=== PATIENT | female | born 1955 | race Caucasian/White ===

== ENCOUNTER 2018-04-29 13:41 | Emergency (ER) | payer OTHER ==
[~2018-04-29] VITALS: Ht 160 cm; Wt 63.3 kg
[2018-04-29] MEDS ORDERED: KEFLEX500 MG PO (16:04)
[2018-04-29] MEDS ORDERED: NORCO 5/3251 TABLET PO (16:04)
[2018-04-29 16:52] VITALS: BP 138/84
== END 2018-04-29 16:53 | disposition home or self-care (01) ==
LOC: EME 13:41
DX: S61.012A Laceration without foreign body of left thumb without damage to nail, initial encounter (principal); W45.8XXA Other foreign body or object entering through skin, initial encounter; Z23 Encounter for immunization; Z88.5 Allergy status to narcotic agent
CPT/HCPCS: S0020

== ENCOUNTER 2018-05-08 11:03 | Emergency (ER) | payer OTHER ==
[~2018-05-08] VITALS: Ht 160 cm; Wt 61.0 kg
[~2018-05-08 11:03] MED LIST: KEFLEX500 MG PO; NORCO 5/3251 TABLET PO
[2018-05-08] MEDS ORDERED: ROXICODONE5 MG PO (12:44)
[2018-05-08 13:27] VITALS: BP 144/77
== END 2018-05-08 13:30 | disposition home or self-care (01) ==
LOC: EME 11:03
DX: S42.301A Unspecified fracture of shaft of humerus, right arm, initial encounter for closed fracture (principal); X50.9XXA Other and unspecified overexertion or strenuous movements or postures, initial encounter; Y93.89 Activity, other specified; Y92.71 Barn as the place of occurrence of the external cause; Z88.5 Allergy status to narcotic agent
CPT/HCPCS: 73030; 73060; 99281; 99285; J3010